=== PATIENT | male | born 1965 | race Caucasian/White ===

== ENCOUNTER 2021-08-15 11:01 | Emergency (ER) | payer OTHER, SELFPAY ==
[2021-08-15] MEDS ORDERED: HYDROcodone/Acetaminophen 5/325 mg Tablet ONE ×2 (13:00→13:01)
== END 2021-08-15 14:00 | disposition home or self-care (01) ==
LOC: ERS 11:01
DX: S16.1XXA Strain of muscle, fascia and tendon at neck level, initial encounter (principal); S39.012A Strain of muscle, fascia and tendon of lower back, initial encounter; M25.421 Effusion, right elbow; I10 Essential (primary) hypertension; E11.9 Type 2 diabetes mellitus without complications; V54.5XXA Driver of pick-up truck or van injured in collision with heavy transport vehicle or bus in traffic accident, initial encounter; Z99.2 Dependence on renal dialysis
CPT/HCPCS: 72125; 72131

== ENCOUNTER 2021-09-04 10:45 | Emergency (ER) | payer MEDICARE, SELFPAY ==
[2021-09-04 11:34] LABS: #Basophils 0.1 thou/uL (0.0-0.2); #Eosinphils 0.2 thou/uL (0.0-0.7); #Lymphocytes 1.3 thou/uL (1.20-3.40); #Monocytes 0.6 thou/uL (0.11-0.59); #Neutrophils 7.9 thou/uL (1.40-6.50); %Basophils 0.7 % (0.0-1.0); %Eosinophils 2.1 % (0.0-10.0); %Lymphocytes 13.2 % (21.0-51.0); %Neutrophils 78.1 % (42.0-75.0); Mean Corpuscular HGB CONC 34.7 g/dL (32.0-36.0); Mean Corpuscular Hemoglobin 33.8 pg (27.0-31.0); Mean Corpuscular Volume 97.5 fL (78.0-98.0); Mean Platelet Volume 7.1 fL (7.4-10.4); Platelet Count 302 thou/uL (130-400); RBC Distribution Width 12.9 % (11.5-14.5); Red Blood Cell (RBC) Count 4.13 mill/uL (4.70-6.10); White Blood Cell (WBC) Count 10.1 thou/uL (4.8-10.8)
[2021-09-04 11:54] LABS: ALT (SGPT) 16 U/L (8-55); AST (SGOT) 14 U/L (5-34); Albumin 5.3 g/dL (3.5-5.0); Alkaline Phosphatase 163 U/L (40-110); Anion Gap 23 mmol/L (10-20); BUN (Urea Nitrogen) 48 mg/dL (8.4-25.7); Bilirubin, Total 1.1 mg/dL (0.2-1.2); Calc. Creatinine Clearance 0 mL/min (70-130); Calcium 8.9 mg/dL (7.8-10.44); Carbon Dioxide 22 mmol/L (22-29); Chloride 92 mmol/L (98-107); Estimated GFR 7; Globulin 4.6 g/dL (2.4-3.5); Glucose 353 mg/dL (70-105); Potassium 3.9 mmol/L (3.5-5.1); Protein, Total 9.9 g/dL (6.0-8.3); Sodium 133 mmol/L (136-145)
[2021-09-04 12:01] LABS: INR-International Normal Ratio 1.1; Prothrombin Time 14.8 sec (12.0-14.7)
[2021-09-04 12:02] LABS: PTT 29.3 sec (22.9-36.1)
[2021-09-04] MEDS ORDERED: Insulin Regular 300 UNITS/3 ML VIAL ONE (12:17)
[2021-09-04 13:39] LABS: Clarity Cloudy (Clear); Specific Gravity, Urine 1.022 (1.002-1.036)
[2021-09-04 13:40] LABS: Bilirubin Unable to Interpret (Negative); Blood, Urine Unable to Interpret (Negative); Glucose, Urine (Dipstick) Unable to Interpret mg/dL (Negative); Ketone, Urine Unable to Interpret mg/dL (Negative); Leukocyte Unable to Interpret (Negative); Nitrite Unable to Interpret (Negative); Protein, Urine (Dipstick) Unable to Interpret mg/dL (Neg-Trace); Urobilinogen UNABLE TO INTERPRET mg/dL (Less than 2)
[2021-09-04 13:41] LABS: RBC/HPF Greater than 50 HPF (0-3)
[2021-09-04 13:42] LABS: Bacteria/HPF 2+ HPF (None Seen)
[2021-09-04] MEDS ORDERED: Lidocaine 1% PF 5 ML VIAL ONE (14:32)
[2021-09-04] MEDS ORDERED: cefTRIAXone\\ROCEPHIN 1 GM VIAL ONE (14:32)
== END 2021-09-04 15:23 | disposition home or self-care (01) ==
LOC: ERS 10:45
DX: N39.0 Urinary tract infection, site not specified (principal); R31.9 Hematuria, unspecified; E11.9 Type 2 diabetes mellitus without complications; I10 Essential (primary) hypertension
CPT/HCPCS: 36415; 36416; 74176; 80053; 81003; 81015; 85025; 85610; 85730; 87086; 96372; J0696; J1815

== ENCOUNTER 2023-03-17 13:56 | Outpatient (CLI) | payer OTHER | END 2023-03-17 13:57 | disposition home or self-care (01) | LOC: BICRAD 13:56 | PROVIDERS: ATTEND Nurse Practitioner Family | DX: B33.8 Other specified viral diseases (principal); R05.9 Cough, unspecified | CPT/HCPCS: 71046 ==